=== PATIENT | female | born 1990 | race Two or more races ===

== ENCOUNTER 2019-07-10 17:50 | Emergency (ER) | payer OTHER ==
[~2019-07-10] VITALS: Ht 152.4 cm; Wt 64.9 kg
[2019-07-10 18:43] VITALS: BP 125/68
[2019-07-10 18:57] LABS: BILIRUBIN,URINE NEGATIVE (NEG); CLARITY,URINE CLEAR; COLOR,URINE YELLOW; NITRITE,URINE NEGATIVE (NEG); PROTEIN,URINE >=300 mg/dL (NEG-TRACE)
[2019-07-10 19:18] LABS: SQUAMOUS EPITHELIAL CELL,UR FEW /LPF
[2019-07-10 19:19] LABS: BACTERIA,URINE FEW /HPF (0-FEW); RBC,URINE TNTC /HPF (0-2); WBC,URINE 20-40 /HPF (0-4)
[2019-07-10] MEDS ORDERED: CIPR500T94 PO (20:12)
[2019-07-10] MEDS ORDERED: PHEN100T82 PO (20:12)
--- NOTE | 2019-07-10 20:13 | PHYS DOC ---
Past Medical History Past Medical History: No Pertinent History Past Surgical History: Tubal ligation Alcohol Use: Rarely Drug Use: None Adult General Chief Complaint Chief Complaint: ABDOMINAL PAIN HPI HPI Patient is a 29 year old female who presents to the ER with complaints of bilateral low back pain, increase urinary frequency, and dysuria. She also reports improving vaginal bleeding after having a D&C on 07/04/19 for removal of retained placenta, pt reports a vaginal one month ago. Pt states that at 10:00 this morning she had a fever of 100 degrees, she took 1 gm of Tylenol for relief of the fever. Her doctor sent her to the ER for examination. She denies any irregular vaginal discharge besides the spotting that is improving. She denies any nausea, vomiting, diarrhea, or abdominal pain. Pt complains of bilateral lower back and flank pain today. Currently she rates her discomfort an 8/10 on the pain scale, there are no alleviating or exacerbating factors. Review of Systems Review of Systems Constitutional: see HPI, denies fatigue or body aches Eyes: Denies change in visual acuity, redness, or eye pain [] HENT: Denies nasal congestion or sore throat [] Respiratory: Denies cough or shortness of breath [] Cardiovascular: No additional information not addressed in HPI [] GI: Denies abdominal pain, nausea, vomiting, or diarrhea [] : See HPI Musculoskeletal: reports bilateral lower back pain Integument: Denies rash or skin lesions [] Neurologic: Denies focal weakness or sensory changes; reports headache Complete systems were reviewed and found to be within normal limits, except as documented in this note. Allergies Allergies Allergies Coded Allergies Type Severity Reaction Last Updated Verified No Known Drug Allergies 07/10/19 No Physical Exam Physical Exam Constitutional: Well developed, well nourished, no acute distress, non-toxic appearance. [] HENT: Normocephalic, atraumatic, bilateral external ears normal, oropharynx moist, no oral exudates, nose normal. [] Eyes: PERRLA, EOMI, conjunctiva normal, no discharge. [] Neck: Normal range of motion, no stridor. [] Cardiovascular:Heart rate regular rhythm, no murmur [] Lungs & Thorax: Bilateral breath sounds clear to auscultation [] Abdomen: soft, no tenderness, no masses, no pulsatile masses, no pelvic TTP. [] Skin: Warm, dry, no erythema, no rash. [] Back: No bony tenderness, Bilateral CVA tenderness. [] Extremities: No cyanosis, ROM intact, no edema. [] Neurologic: Alert and oriented X 3, no focal deficits noted. [] Psychologic: Affect normal, judgement normal, mood normal. [] Current Patient Data Vital Signs Vital Signs Date Time Temp Pulse Resp B/P (MAP) Pulse Ox O2 Delivery O2 Flow Rate FiO2 07/10/19 18:43 99.8 96 18 125/68 (87) 97 Room Air 99.8 Lab Values Laboratory Tests Test 07/10/19 18:30 07/10/19 18:40 Urine Collection Type Unknown Urine Color Yellow Urine Clarity Clear Urine pH 8.0 Urine Specific [place] 1.020 Urine Protein >=300 mg/dL (NEG-TRACE) Urine Glucose (UA) Negative mg/dL (NEG) Urine Ketones (Stick) Trace mg/dL (NEG) Urine Blood Large (NEG) Urine Nitrite Negative (NEG) Urine Bilirubin Negative (NEG) Urine Urobilinogen Dipstick 1.0 mg/dL (0.2 mg/dL) Urine Leukocyte Esterase Moderate (NEG) Urine RBC Tntc /HPF (0-2) Urine WBC 20-40 /HPF (0-4) Urine Squamous Epithelial Cells Few /LPF Urine Bacteria Few /HPF (0-FEW) Urine Mucus Slight /LPF POC Urine HCG, Qualitative Hcg negative (Negative) EKG EKG [] Radiology/Procedures Radiology/Procedures [] Course & Med Decision Making Course & Med Decision Making Pertinent Labs and Imaging studies reviewed. (See chart for details) Dx: acute pyelonephritis Prescription written for ciprofloxacin 500 mg PO bid x7 days, follow up with OBGyn this week, call tomorrow to schedule and appointment. Increase clear fluids, avoid bladder irritants. Tylenol or ibuprofen as needed for pain/fever. Return to ER if symptoms worsen. Patient verbalized an understanding of home care, medications, follow-up, and return to ED instructions and was in agreement with the plan of care. [] Dragon Disclaimer Dragon Disclaimer This electronic medical record was generated, in whole or in part, using a voice recognition dictation system. Departure Departure Impression: Primary Impression: Urinary tract infection Disposition: HOME, SELF-CARE Condition: STABLE Referrals: UNKNOWN PCP NAME (PCP) Patient Instructions: Pyelonephritis, Adult, [id number] Additional Instructions: Fill prescription(s) and use as directed. Avoid bladder irritants such as caffeine, carbonation, and spicy foods. Increase clear fluids. Follow up with your [facility] this week, return to the ER if symptoms worsen. Scripts Phenazopyridine Hcl (PYRIDIUM) 100 Mg Tablet 100 MG PO TID for 4 Days, #12 TAB 0 Refills Prov: SUNNY NG APRN 07/10/19 Ciprofloxacin Hcl (CIPRO) 500 Mg Tablet 1 TAB PO BID, #14 TAB 0 Refills Prov: SUNNY NG APRN 07/10/19 Problem Qualifiers Primary Impression: Urinary tract infection Urinary tract infection type: acute pyelonephritis Qualified Codes: N10 - Acute pyelonephritis SUNNY NG APRN Jul 10, 2019 20:13
== END 2019-07-10 20:19 | disposition home or self-care (01) ==
LOC: ER 17:50
DX: N10 Acute pyelonephritis (principal); R51 Headache; Z98.51 Tubal ligation status
CPT/HCPCS: 81001; 81025; 87086; 99284